=== PATIENT | female | born 1975 | race Caucasian/White ===

== ENCOUNTER → 2019-05-28 | Day surgery (SDC) | payer OTHER ==
--- NOTE | 2019-05-28 16:58 | OP ---
DATE OF OPERATION: 05/28/2019 PREOPERATIVE DIAGNOSIS: Right breast masses x2 at 12 o'clock, 2 cm from the nipple. POSTOPERATIVE DIAGNOSIS: Right breast masses x2 at 12 o'clock, 2 cm from the nipple. PROCEDURE: Right breast ultrasound-guided core biopsies with clip placements. ANESTHESIA: Local. ATTENDING SURGEON: Colleen Stringer MD ESTIMATED BLOOD LOSS: Minimal. COMPLICATIONS: None. DESCRIPTION OF PROCEDURE: Patient was made aware of the risks and benefits of the procedure and consented. Patient was placed in a supine position under sterile conditions with 1% lidocaine for local anesthesia. Small roni was made in the skin. The deep lesion was approached 1st via lateral approach. Using ultrasound guidance, a 10-gauge suction biopsy device was placed into the mass. Multiple cores were obtained and submitted to Pathology. Likewise, under ultrasound guidance, a U-shaped clip was placed into the biopsy region. Another 10-gauge biopsy gun was then placed into the superficial lesion at the 12 o'clock position, 2 cm from the nipple, and multiple cores were obtained under ultrasound guidance and submitted to Pathology. Likewise, under ultrasound guidance, a bowtie clip . Steri-Strip and sterile bandage were applied. We will contact her with results. COLLEEN STRINGER M.D. [id number]
--- NOTE | 2019-06-01 10:53 | PATH ---
Surgical Pathology Report Patient Name: JAMIA GARCIA [facility]. Rec. #: [id number] /Age/Gender: 1975 (Age: 44) / F Account: [id number] Location: [facility] Taken: 05/28/2019 Received: 05/28/2019 Reported: 06/01/2019 Physicians: Colleen Stringer M.D. Specimen(s) Received A: RIGHT BREAST 12:00 RETRO - DEEP CORE BIOPSY B: RIGHT BREAST 12:00 RETRO - SUPERFICIAL CORE BIOPSY Clinical History Nonpalpable lesion Ultrasound findings: Highly suspicious/malignant Final Diagnosis A. BREAST, RIGHT, 12:00 RETRO, DEEP, CORE BIOPSY: BENIGN BREAST TISSUE SHOWING FIBROADENOMA AND FIBROCYSTIC CHANGES INCLUDING MICROCYST FORMATION, APOCRINE METAPLASIA AND STROMAL FIBROSIS. B. BREAST, RIGHT, 12:00 RETRO, SUPERFICIAL, CORE BIOPSY: BENIGN BREAST TISSUE SHOWING FIBROCYSTIC CHANGES INCLUDING MICROCYST FORMATION, AND STROMAL FIBROSIS. Electronically Signed Sade Castañeda M.D. Gross Description A. Received in formalin labeled "right breast 12:00 retro site 1 deep," are 4 perdomo-yellow, cylindrical portions of fibroadipose tissue ranging from 1.8-2.1 cm in length and averaging 0.2 cm in diameter. The specimen is admixed with blood clot. The formalin is filtered and the specimen is entirely submitted in one cassette. B. Received in formalin labeled "right breast 12:00 retro site 2," are 5 perdomo-yellow, cylindrical portions of fibroadipose tissue ranging from 0.5-1.3 cm in length and averaging 0.3 cm in diameter. The specimens are submitted in toto in one cassette. Time to formalin fixation: < 1minute Total formalin fixation time: Approximately 6 hours. DL/05/28/2019 saudi05/28/2019
== END | disposition home or self-care (01) ==
LOC: FRADUS-SUR 10:57
PROVIDERS: ATTEND Surgery Surgical Oncology
PROC: 0HBU3ZX Excision of Left Breast, Percutaneous Approach, Diagnostic (ICD-10-PCS; principal; 2019-05-28)
DX: D24.1 Benign neoplasm of right breast (principal); N60.11 Diffuse cystic mastopathy of right breast; N60.31 Fibrosclerosis of right breast; N64.89 Other specified disorders of breast; N63.10 Unspecified lump in the right breast, unspecified quadrant
CPT/HCPCS: 19083; 19084; 87899; 88305-TC; A4648

== ENCOUNTER 2019-06-15 06:19 | Day surgery (SDC) | payer OTHER ==
[2019-06-10 15:03] VITALS: BMI 21.5
--- NOTE | 2019-06-11 14:34 | HP ---
Admitting History and Physical - Primary Care Physician PCP: Colleen Stringer - Admission Chief Complaint: Right breast cancer History of Present Illness: 44 year old premenapausal female with skin retraction right breast lower inner quadrant .Mammogram revealed dense breast with well circumscribed nodule in right breast lower inner retroareolar region. US showed bilateral cysts and right breast4:00 8 cm fn 11mm nodule Birad 4. US core bx right breast Er+/CA+ Her2- invasive ductal carcinoma. MRI showed two additional areas at 12:00 and were seen on US which were bxed and negative. Genetic panel negative History Source: Patient Limitations to Obtaining History: No Limitations - Past Medical History Pulmonary: Yes: Asthma, Other (allergies) ...LMP: 05/15/19 ...: No - Past Surgical History Past Surgical History: Yes: Tonsillectomy - Smoking History Smoking history: Former smoker Have you smoked in the past 12 months: Yes If you are a former smoker, when did you quit?: 04/2019 - Alcohol/Substance Use Hx Alcohol Use: Yes (20 per week) Home Medications - Allergies Allergies/Adverse Reactions: Allergies Allergy/AdvReac Type Severity Reaction Status Date / Time No Known Allergies Allergy Verified 06/10/19 14:57 - Home Medications Home Medications: Ambulatory Orders Albuterol Sulfate Inhaler - [Ventolin Hfa Inhaler -] 1 - 2 inh PO QID PRN Family Medical History Other Family History: mat cousin leukemia Physical Examination Constitutional: Yes: No Distress Breast(s): Yes: Other (retraction right breast inner lower quadrant and post bx changes no palpable adenopathy) Problem List - Problems (1) Breast cancer, right breast Code(s): C50.911 - MALIGNANT NEOPLASM OF UNSP SITE OF RIGHT FEMALE BREAST Qualifiers: Breast location: lower inner quadrant of breast Estrogen receptor status: positive Patient sex: female Qualified Code(s): C50.311 - Malignant neoplasm of lower-inner quadrant of right female breast; Z17.0 - Estrogen receptor positive status [ER+] Assessment/Plan Right breast wide excision, mammogram needle localization,sentenel node biopsy ,lymphoscintogram possible axillary node dissection
[2019-06-15] MEDS ORDERED: PROPOFOL 20 ML ONE (10:48)
[2019-06-15] MEDS ORDERED: MIDAZOLAM HCL 2 MG/2 ML SINGLE DOSE VIAL ONE (10:49)
[2019-06-15] MEDS ORDERED: BUPIVACAINE HCL/PF 0.5% (5MG/ML) 10 ML VIAL ONE (10:51)
[2019-06-15] MEDS ORDERED: LIDOCAINE HCL 1%, 10 MG/ML (20ML VIAL) ONE (10:51)
[2019-06-15] MEDS ORDERED: ISOSULFAN BLUE 10 MG/ML VIAL SQ ONE (11:00)
[2019-06-15] MEDS ORDERED: KETOROLAC TROMETHAMINE 30 MG/1 ML VIAL IVPUSH PRN (11:09)
[2019-06-15] MEDS ORDERED: ONDANSETRON 4 MG/2 ML VIAL IVPUSH PRN ×2 (11:09→12:57)
[2019-06-15] MEDS ORDERED: DEXTROSE 5%-0.45% SALINE 1,000 ML IV SCH (11:15)
[2019-06-15] MEDS ORDERED: ONDANSETRON 4 MG/2 ML VIAL ONE (11:16)
[2019-06-15] MEDS ORDERED: SODIUM CHLORIDE 0.9% P/F 10 ML VIAL IJ ONE (11:16)
[2019-06-15] MEDS ORDERED: LIDOCAINE HCL/PF 2% SDV 5ML VIAL ONE (11:16)
[2019-06-15] MEDS ORDERED: ceFAZolin SODIUM 1 GM VIAL ONE (11:16)
[2019-06-15] MEDS ORDERED: DEXAMETHASONE SOD PHOSPHATE 4 MG/1 ML VIAL ONE (11:16)
[2019-06-15] MEDS ORDERED: GUM MASTIC/STORAX/MSAL/ALCOHOL 1 DRP DROPSBTL MC ONE (12:28)
[2019-06-15] MEDS ORDERED: oxyCODONE HCL 5 MG TABLET PO PRN ×2 (12:57)
[2019-06-15] MEDS ORDERED: LACTATED RINGERS SOLUTION 1,000 ML IV SCH (13:00)
[2019-06-15 13:57] VITALS: TEMP 97.8
[2019-06-15] MEDS ORDERED: oxyCODONE HCL 5 MG TABLET ONE (14:06)
[2019-06-15 14:55] VITALS: BP 122/70; PULSE 66
--- NOTE | 2019-06-15 17:37 | OP ---
DATE OF OPERATION: 06/15/2019 PREOPERATIVE DIAGNOSIS: Right breast cancer. POSTOPERATIVE DIAGNOSIS: Right breast cancer. PROCEDURE: Right mammographically localized partial mastectomy with right axillary central node biopsy. ANESTHESIA: General intubated. ATTENDING SURGEON: Fior Stringer MD SKI MOLDER: NAYA Huang ESTIMATED BLOOD LOSS: Minimal. COMPLICATIONS: None. DESCRIPTION OF PROCEDURE: Patient was made aware of the risks and benefits of the procedure and consented. She was placed in supine position after going to radiology where a needle was placed next to the indexed lesion and then nuclear medicine where radioactive tracer was injected into the periareolar skin. After general anesthesia was induced, patient was intubated, 3.0 mL of 1% Isosulfan Blue was locally infiltrated into the subareolar tissues. The operative site was then prepped and draped in the usual sterile fashion. Curvilinear incision was made in the right axilla. Using blunt and sharp dissection, tissues were dissected down to reveal 3 blue and hot lymph nodes. These were surgically excised and submitted to Pathology. Palpation of the rest of the axilla and interrogation with the needle probe found no suspicious nodes or hot areas. The wound was copiously irrigated with normal saline. Hemostasis maintained by electrocautery. The wound was then closed with deep 3-0 Vicryl followed by running 4-0 Monocryl. The breast was then approached. A periareolar incision was made in the medial aspect of the areola. Using electrocautery, thick skin flaps were made all the way to the wire. The needle was withdrawn through the puncture site and a wire through the wound. Tissues around the wire were then sharply excised and submitted with a short suture superior, long suture lateral. Specimen radiograph confirmed the presence of the indexed lesion. The specimen was then submitted for permanent sectioning. Additional segments were taken medial, lateral, superior, inferior, and anterior with clips at the new margin. No additional segment was taken posteriorly as the original dissection went all the way down to the pectoralis muscle. The wound was copiously irrigated with normal saline. Hemostasis maintained by electrocautery. The breast tissue was taken off the pectoralis muscle and rotated into the defect and closed with [id number] sutures of 2-0 Vicryl. Skin was then closed with deep dermal 3-0 Vicryl followed by a running subcuticular 4-0 Monocryl. Steri-Strips, sterile dressing, and a compression bra were then applied. The surgical areas were infiltrated with 0.5% Marcaine for local anesthesia. The patient having tolerated the procedure well was transferred to the recovery room in excellent condition. FIOR STRINGER M.D. [id number]
--- NOTE | 2019-06-17 14:33 | PATH ---
Surgical Pathology Report Patient Name: JAMIA GARCIA [facility]. Rec. #: [id number] /Age/Gender: 1975 (Age: 44) / F Account: [id number] Location: [facility] Taken: 06/15/2019 Received: 06/15/2019 Reported: 06/17/2019 Physicians: Colleen Stringer M.D. Specimen(s) Received A: RIGHT AXILLARY SENTINEL LYMPH NODES B: RIGHT BREAST WIDE EXCISION C: ANTERIOR MARGIN RIGHT BREAST D: MEDIAL MARGIN RIGHT BREAST E: LATERAL MARGIN RIGHT BREAST F: INFERIOR MARGIN RIGHT BREAST G: SUPERIOR MARGIN RIGHT BREAST Clinical History Invasive Ca Final Diagnosis A. lymph nodeS, right axillary sentinel #1, excision: Three lymph nodes, negative for metastatic carcinoma (0/3). B. breast, right, wide excision: Invasive ductal carcinoma, well differentiated (tubule score: 2/3, nuclear grade: 2/3, mitotic: 1/3, total score: 5/9; Cynthia grade 1). Invasive carcinoma measures 1.0 cm in greatest dimension, microscopically. Ductal carcinoma in situ (DCIS), Cribriform and micropapillary type, intermediate nuclear grade with rare associated calcifications. Invasive carcinoma extends to the anterior and superior margins and is close to (< 1 mm) the medial margin. Surgical margins are uninvolved by DCIS; DCIS is at 1 mm from the closest (deep) margin. see specimenS C-G FOR final margins. No lymphovascular invasion is identified. Prior biopsy site Changes are present. Pathologic stage (pTNM):pt1b pn0. see also invasive carcinoma case summary below. C. breast, right, anterior margin, excision: Benign fibroadipose tissue. D. breast, right, medial margin, excision: Focal residual invasive ductal carcinoma. the new margin is uninvolved by carcinoma; carcinoma is at 5 mm from the closest NEW margin. E. breast, right, lateral margin, excision: Focal DCIS, intermediate nuclear grade. The new margin is uninvolved by DCIS; DCIS is at 5 mm from the closest new margin. F. breast, right, inferior margin, excision: Benign breast tissue. G. breast, right, superior margin, excision: Benign breast tissue. Comments Breast Invasive Carcinoma: Surgical Pathology Case Summary (Based on AJCC TNM 8 th edition) Procedure _X_ Excision (less than total mastectomy) Specimen Laterality _X_ Right Tumor Size _X_ Greatest dimension of largest invasive focus >1 mm (millimeters): 10 mm Histologic Type _X_ Invasive carcinoma of no special type (ductal, not otherwise specified) Histologic Grade ([place] Histologic Score) Glandular (Acinar)/Tubular Differentiation _X_ Score 2 (10% to 75% of tumor area forming glandular/tubular structures) Nuclear Pleomorphism _X_ Score 2 Mitotic Rate _X_ Score 1 Overall Grade _X_ Grade 1 (scores of 3, 4, or 5) Tumor Focality _X_ Single focus of invasive carcinoma Ductal Carcinoma In Situ (DCIS) _X_ DCIS is present in specimen _X_ Negative for extensive intraductal component (EIC) Margins Invasive Carcinoma Margins _X_ Uninvolved by invasive carcinoma Distance from closest margin (millimeters): 5 mm from final medial margin (D) DCIS Margins _X_ Uninvolved by DCIS Distance from closest margin (millimeters): 5 mm from final lateral margin Regional Lymph Nodes _X_ Uninvolved by tumor cells Number of Lymph Nodes Examined: 3 Number of [place] Nodes Examined: 3 Treatment Effect _X_ No known presurgical therapy Lymphovascular Invasion _X_ Not identified Pathologic Stage Classification (pTNM, AJCC 8th Edition) Primary Tumor (Invasive Carcinoma) (pT) _X_ pT1b: Tumor >5 mm but =10 mm in greatest dimension Regional Lymph Nodes (pN) Category (pN) _X_ pN0: No regional lymph node metastasis identified or ITCs only Biomarker Studies Results of ER, MA, Her2 and Ki67 studies will be reported separately in an addendum. Positive and negative controls (internal if applicable) show appropriate results. Formalin fixation time is within current ASCO/CAP recommendations for ER, MA and Her2 testing. Time to formalin fixation is not given. Electronically Signed Sade Castañeda M.D. Addendum Reported: 06/18/2019 Addendum Diagnosis Results of ER and MA studies performed on block B2 at [facility] are as follows: ER (clone [id number] mouse monoclonal antibody by [employer]): 100 % nuclear staining with strong intensity (positive). MA (clone16 mouse monoclonal antibody by [employer]): 100 % nuclear staining with strong intensity (positive). Results of Her2 (IHC) & Ki-67 studies performed on block B2 at [place], [place] ([id number]) are as follows: Her2 IHC (EP3 from [employer], formerly known as [id number], using [employer] Polymer Refine detection kit): 0 (negative). Ki-67:~5% (low proliferative index) Positive and negative controls (internal if applicable) show appropriate results. Approximate total formalin fixation time is within current ASCO/CAP recommendations for ER, MA and Her2 testing. Time to formalin fixation is not given. Sade Castañeda M.D. Gross Description A. Received in formalin labeled "right axillary sentinel nodes," are 3 perdomo lymph nodes with attached fat ranging from 0.9-1.3 cm in greatest dimension. The lymph nodes are bisected and entirely submitted in 3 cassettes as follows: 1-3-one bisected lymph node each. B. Received in formalin, labeled "right breast wide excision," is a 3.2 x 2.7 x 1.8 cm. perdomo-yellow, irregular, portion of fibroadipose tissue with a needle localization wire present. There is a short suture marking the superior aspect and a long suture marking the lateral aspect, per the surgeon. There is no skin present. The specimen is inked as follows: superior blue; inferior green; medial yellow; anterior and lateral red; deep black. The specimen is serially sectioned from lateral to medial. Sectioning reveals a 1.1 x 1.0 x 1.0 cm perdomo, firm mass abutting the anterior and superior margins. The mass is focally 0.2 cm from the deep margin and 0.4 cm from the medial margin. [employer] sections are submitted in 5 cassettes as follows: [id number] and sequentially submitted mass (each with anterior, deep, superior and inferior margins); 4-medial margin; 5-lateral margin. Time to formalin fixation: not given Total formalin fixation time: Approximately 24 hours C. Received in formalin labeled "anterior margin right breast," is a 2.2 x 1.5 x 0.5 cm portion of fibroadipose tissue with a clip marking the new margin, per the surgeon. The new margin is inked black and the specimen is serially sectioned. The specimen is entirely submitted in 2 cassettes. D. Received in formalin labeled "medial margin right breast," is a 2.7 x 2.0 x 0.8 cm portion of fibroadipose tissue with a clip marking the new margin, per the surgeon. The new margin is inked black and the specimen is serially sectioned. The specimen is entirely submitted in 3 cassettes. E. Received in formalin labeled "lateral margin right breast," is a 2.7 x 1.5 x 0.6 cm portion of fibroadipose tissue with a clip marking the new margin, per the surgeon. The new margin is inked black and the specimen is serially sectioned. The specimen is entirely submitted in 3 cassettes. F. Received in formalin labeled "right breast inferior margin," is a 2.0 x 1.3 x 0.6 cm portion of fibroadipose tissue with a clip marking the new margin, per the surgeon. The new margin is inked black and the specimen is serially sectioned. The specimen is entirely submitted in 2 cassettes. G. Received in formalin labeled "superior margin right breast," is a 2.5 x 1.5 x 0.6 cm portion of fibroadipose tissue with a clip marking the new margin, per the surgeon. The new margin is inked black and the specimen is serially sectioned. The specimen is entirely submitted in 2 cassettes. 06/16/2019 [facility]06/16/2019
== END 2019-06-15 15:06 | disposition home or self-care (01) ==
LOC: FASU 06:19
PROVIDERS: ATTEND Surgery Surgical Oncology
PROC: 0HBT0ZZ Excision of Right Breast, Open Approach (ICD-10-PCS; principal; 2019-06-15 11:40)
DX: C50.311 Malignant neoplasm of lower-inner quadrant of right female breast (principal); Z17.0 Estrogen receptor positive status [ER+]; J45.909 Unspecified asthma, uncomplicated; Z87.891 Personal history of nicotine dependence
CPT/HCPCS: 19281; 78195-TC; 84703; 87086; 94760; A9541

== ENCOUNTER 2020-09-16 14:55 | Emergency (ER) | payer OTHER ==
[2020-09-16] MEDS ORDERED: SODIUM CHLORIDE 0.9% 500 ML INFUS.BAG IV ONE ×2 (15:13→17:33)
[2020-09-16 15:20] VITALS: TEMP 98.2; BMI 21.7
[2020-09-16 15:49] LABS: BASO % 1.2 % (0-2.0); EOS % 1.3 % (0-4.5); HEMOGLOBIN 12.5 GM/dl (10.7-15.3); LYMPH % 12.8 % (8-40); MCH 33.8 pg (25.7-33.7); MCHC 32.8 g/dl (32.0-36.0); MEAN CELL VOLUME 103.2 fl (80-96); MEAN PLT VOLUME 7.7 fl (7.5-11.1); MONO % 10.7 % (3.8-10.2); PLATELET COUNT 256 K/MM3 (134-434); RBC 3.69 M/mm3 (3.60-5.2); RDW 14.7 % (11.6-15.6); WHITE BLOOD COUNT 6.7 K/mm3 (4.0-10.8)
[2020-09-16 15:58] LABS: ALBUMIN 4.2 g/dl (3.4-5.0); BILIRUBIN,TOTAL 0.5 mg/dl (0.2-1); CALCIUM 9.1 mg/dl (8.5-10); CREATININE 0.8 mg/dl (0.55-1.3); POTASSIUM 4.1 mmol/L (3.5-5.1)
[2020-09-16 17:28] LABS: CALCIUM 8.2 mg/dl (8.5-10); CREATININE 0.7 mg/dl (0.55-1.3); POTASSIUM 4.1 mmol/L (3.5-5.1)
[2020-09-16 18:27] VITALS: BP 122/74; PULSE 78
[2020-09-16 18:53] LABS: CALCIUM 8.1 mg/dl (8.5-10); CREATININE 0.7 mg/dl (0.55-1.3); POTASSIUM 4.2 mmol/L (3.5-5.1)
== END 2020-09-16 19:06 | disposition home or self-care (01) ==
LOC: FER 14:55
DX: R55 Syncope and collapse (principal); E87.1 Hypo-osmolality and hyponatremia; E86.1 Hypovolemia
CPT/HCPCS: 36415; 71046-TC-FY; 80048; 80053; 82550; 82553; 84484; 84703; 85025; 93005; 99284-25